=== PATIENT | male | born 1990 | race Caucasian/White ===

== ENCOUNTER 2020-05-07 09:07 | Outpatient (REF) | payer OTHER, SELFPAY ==
[2020-05-07 10:20] LABS: COVID-19 Test Negative (Negative); IDNOW Serial# 9DD0AD1C
== END 2020-05-07 09:08 | disposition home or self-care (01) ==
LOC: HO.LAB 09:07
PROVIDERS: PCP Nurse Practitioner Family; Visit Provider Emergency Medicine
DX: Z20.828 Contact with and (suspected) exposure to other viral communicable diseases (principal)
CPT/HCPCS: 87635